=== PATIENT | male | born 1955 | race Caucasian/White ===

== ENCOUNTER 2020-11-24 08:53 | Inpatient (IN) | payer MEDICARE, OTHER, SELFPAY ==
[2020-11-24] VITALS (8 sets, daily range): BP systolic 119–154; BP diastolic 79–97; PULSE 96–118; RESP 18–20; TEMP 36.4–37.3; O2SAT 94–98; BMI 28.3
--- NOTE | ~2020-11-24 | XR_ITS ---
EXAMINATION: XR abdomen obstructive series DATE: 11/25/2020 08:15 INDICATION: Small bowel obstruction TECHNIQUE: Upright and supine views of the abdomen were obtained. COMPARISON: 11/24/2020 FINDINGS: There are multiple persistently dilated loops of small bowel in the left abdomen. No free i ntraperitoneal gas is identified. 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 The visualized lung bases are clear. IMPRESSION: 1. Small bowel obstruction. Reviewed, dictated and finalized at location A. RADIAL DRILL PRESS SET UP OPERATOR IMPRESSION: 1. Small bowel obstruction.
--- NOTE | ~2020-11-24 | XR_ITS ---
EXAMINATION: XR abdomen obstructive series EXAM DATE: 11/26/2020 08:15 INDICATION: Follow-up on small bowel obstruction. Symptoms improving. TECHNIQUE: Frontal upright projection of the upper abdomen, frontal projection of the lower abdomen f or interpretation. Comparison is made to prior examination from 11/25/2020. FINDINGS: There are multiple loops of moderately distended mid small bowel, with slight interval impr ovement compared to yesterday. There is expected amount of colonic stool and gas. Lung bases are serena r. No free intraperitoneal air suspected. IMPRESSION: Moderately dilated small bowel with slight improvement suspected. Small bowel obstructio n. Reviewed, dictated and finalized at location A. P MACHINE OPERATOR IMPRESSION: Moderately dilated small bowel with slight improvement suspected. Small bowel obstruction.
--- NOTE | ~2020-11-24 | XR_ITS ---
EXAMINATION: XR abdomen obstructive series EXAM DATE: 11/24/2020 15:42 INDICATION: F/U on small bowel obstruction (see CT of 11/24). TECHNIQUE: Frontal upright projection of the upper abdomen, frontal projection lower abdomen/pelvis f or interpretation. Correlation is made to CT abdomen pelvis earlier same date. FINDINGS: There are multiple loops of moderately distended air-filled jejunum in the mid abdomen, sma ll bowel obstruction. No free intraperitoneal air. There is no organomegaly. Lung bases are unremarka ble. There are mild bony degenerative changes. Contrast in the bladder from recent CT. IMPRESSION: Small bowel obstruction. Reviewed, dictated and finalized at location A. T ARMORED VEHICLE OFFICER IMPRESSION: Small bowel obstruction.
--- NOTE | ~2020-11-24 | CT_ITS ---
EXAMINATION: CT abdomen pelvis w con INDICATION: Left lower quadrant pain TECHNIQUE: Computed tomographic images of the abdomen and pelvis were obtained after the administrati on of 100 cc of Omnipaque 350 intravenous contrast. The dose-length product (DLP) was 579.38 mGy-cm. Automated exposure control and iterative reconstruction technique were employed. COMPARISON: None available FINDINGS: The lung bases are clear. The heart size is normal. The liver, spleen, pancreas, gallbladde r, and adrenal glands are normal. The kidneys are unremarkable. There is calcified atherosclerosis of the aorta and many of the other arteries. No pathologically enlarged abdominal or pelvic lymph nodes are identified. There are multiple dilated loops of small bowel with an abrupt transition point in t he left lower quadrant on axial image 92/164. The small bowel distal to this transition is decompress ed. No free intraperitoneal gas is identified. There is a fat-containing umbilical hernia. Colonic di verticulosis is present without evidence of diverticulitis. There are bilateral L5 pars defects with grade 1 anterolisthesis of L5 on S1. IMPRESSION: 1. Small bowel obstruction with transition point in the left lower quadrant. These findings were disc ussed with Dr. Mason Mcknight MD in the Emergency Department at 1012 hours on 11/24/2020. Reviewed, dictated and finalized at location A. PROCESSING SPECIALIST IMPRESSION: 1. Small bowel obstruction with transition point in the left lower quadrant. Th sergio findings were discussed with Dr. Mason Mcknight MD in the Emergency Depart ment at 1012 hours on 11/24/2020.
[2020-11-24 09:13] LABS: Basophils Percent Auto 0.2 % (0.2-1.2); Eosinophils Absolute Auto 0.1 K/mm3 (0-0.3); Eosinophils Percent Auto 0.5 % (0-4.4); Hematocrit 46.8 % (42.0-52.0); Hemoglobin 16.5 g/dL (14.0-18.0); Immature Granulocyte Absolute 0.03 K/mm3 (0.00-0.031); Immature Granulocyte Percent A 0.2 % (0-0.5); Lymphocytes Absolute Auto 1.74 K/mm3 (0.9-3.2); Lymphocytes Percent Auto 12.6 % (18.3-44.2); Mean Corpuscular HGB Conc 35.3 g/dl (32-36); Mean Corpuscular Hemoglobin 32.5 pg (26-34); Mean Corpuscular Volume 92.3 fl (80-100); Monocytes Absolute Auto 0.8 K/mm3 (0.1-0.6); Monocytes Percent Auto 5.9 % (2.6-8.5); Neutrophils Absolute Auto 11.1 K/mm3 (1.3-6.7); Neutrophils Percent Auto 80.6 % (45.5-73.1); Platelet Count Result 358 k/mm3 (150-375); Red Blood Count 5.07 M/mm3 (4.6-6.20); Red Cell Distribution Width 12.6 % (11.5-14.5); White Blood Count 13.8 K/mm3 (4.5-10.0)
[2020-11-24 09:20] LABS: Add Urine Microscopic? YES; Appearance Urine Clear (Clear); Bilirubin Urine Negative (Negative); Blood Urine Negative (Negative); Color Urine Yellow (Yellow); Glucose Urine UA Negative (Negative); Ketones Urine 1+ mg/dL (Negative); Leukocyte Esterase Ur Negative LEU/UL (Negative); Mucus Urine Rare /lpf; Nitrate Urine Negative (Negative); Protein Urine 1+ mg/dL (Negative); Specific Grav Ur 1.021 (1.001-1.035); Squamous Epithelial Cell Urine Rare /hpf (Few); Urobilinogen Urine Negative mg/dL (<2.0); WBC Urine 0-3 /hpf
[2020-11-24 09:26] LABS: Alanine Aminotransferase 31 U/L (4-50); Alkaline Phosphatase 81 U/L (38-126); Anion Gap 9 mmol/L (8-16); Aspartate Amino Transferase 34 U/L (17-59); Blood Urea Nitrogen 16 mg/dL (9-20); Calcium 10.2 mg/dL (8.4-10.2); Carbon Dioxide 29 mmol/L (22-30); Chloride 98 mmol/L (98-107); Estimated CRCL calculation 71 ml/min; Estimated Glomerular Filt Rate > 60; Glucose 112 mg/dL (75-110); Lipase 37 U/L (23-300); Potassium 4.3 mmol/L (3.4-5.0); Sodium 136 mmol/L (137-145)
[2020-11-24] MEDS: SODIUM CHLORIDE 0.9% IV 1,000 ML 150 ML IV CONT (09:29)
[2020-11-24] MEDS: MORPHINE SULFATE (*CRX) 4 MG/ML INJ IV PUSH ×2 (09:30→12:39)
[2020-11-24] MEDS: ONDANSETRON INJ 4 MG/2 ML VIAL IV PUSH ×4 (09:30→20:05)
--- NOTE | 2020-11-24 11:30 | ED.ABDPAIN ---
HPI - Abdominal Pain General Chief Complaint: Abdominal Pain Stated Complaint: ABD PAIN X2D Time Seen by Provider: 11/24/20 09:09 Source: patient Mode of arrival: ambulatory Limitations: no limitations History of Present Illness HPI narrative: 65-year-old with a history of hypertension, diabetes, diverticulosis s/p appendectomy remote history of bowel obstruction here with complaints of left lower abdominal pain since yesterday. Patient states that he is nauseated but have no significant vomiting. Had bowel movement 3 days ago. He denies any fever or chills. MD elicited complaint: abdominal pain Pertinent past history: diverticulitis Onset (ago): day(s) (1) Pain Consistency: constant Location: LLQ Severity: moderate Quality: aching Migration to: no migration Exacerbating factors: nothing Relieving factors: nothing Related Data Home Medications Medication Instructions Recorded Confirmed amlodipine-benazepril 1 cap PO DAILY 11/24/20 aspirin [Adult Low Dose Aspirin] 81 mg PO DAILY 11/24/20 atorvastatin 40 mg PO DAILY 11/24/20 dicyclomine 20 mg PO QID 11/24/20 levothyroxine 125 mcg PO DAILY 11/24/20 omeprazole magnesium [Prilosec OTC] 20 mg PO DAILY 11/24/20 Allergies Allergy/AdvReac Type Severity Reaction Status Date / Time grass pollen Allergy Unknown unknown Verified 12/18/16 13:51 poison karin extract Allergy Unknown unknown Verified 12/18/16 13:51 No Known Allergies Allergy Unverified 03/29/19 13:21 Review of Systems Review of Systems: All systems reviewed & are unremarkable except as noted in HPI and below Constitutional: Constitutional: Reports no additional constitutional complaints Eyes: Eyes: Reports no additional eye complaints ENT: Reports system reviewed and no additional complaints, except as documented Cardiovascular: Cardiovascular: Reports no additional cardiovascular complaints Respiratory: Respiratory: Reports no additional respiratory complaints Gastrointestinal: Gastrointestinal: Reports as per HPI Musculoskeletal: Musculoskeletal: Reports no additional musculoskeletal complaints Neurologic: Reports system reviewed and no additional complaints, except as documented Psychiatric: Psychiatric: Reports no additional psychiatric complaints Endocrine: Endocrine: Reports no additional endocrine complaints [facility] Family History Family History Father Hypertension Family history of heart disease in male family member before age 55 Mother Hypertension Family history of diabetes mellitus in first degree relative Family history of heart disease in male family member before age 55 Social History Social History Smoking status: Heavy tobacco smoker Alcohol intake: current Gender identity (if verbalized by the patient): Male Exam Narrative: Exam Narrative: GENERAL: Well-appearing, well-nourished, and in no acute distress. HEAD: Normocephalic, atraumatic. EYES: PERRLA and EOMI.. NECK: Supple. CHEST: Clear to auscultation. No respiratory distress. HEART: Regular rate and rhythm. No murmur heard. Normal peripheral pulses. ABDOMEN: Soft, tender in the LLQ EXTREMITIES: Normal range of motion. No edema. SKIN: Warm, dry, no rash. NEURO: No focal deficits. Alert and oriented x3. PSYCH: Normal mood and affect. Course Course Emergency Course: With a remote history of bowel obstruction will do CBC chemistry and a CT of the abdomen. Meanwhile we will give him Zofran for nausea and morphine for pain. Vital Signs Vital signs: Vital Signs Temperature 36.4 C L 11/24/20 08:55 Pulse Rate 118 H 11/24/20 08:55 Respiratory Rate 20 11/24/20 08:55 Blood Pressure 154/97 H 11/24/20 08:55 Pulse Oximetry 98 11/24/20 08:55 Temperature 36.4 C L 11/24/20 08:55 Pulse Rate 118 H 11/24/20 08:55 Respiratory Rate 20 11/24/20 08:55 Blood Pressure 154/97 H 11/24/20 08:55 Pulse Oximetry 98 11/24/20 08:55
--- NOTE | 2020-11-24 13:11 | PM.IMHP ---
H&P: HPI History of Present Illness Date/Time: 11/24/20 13:11 Chief Complaint: Abdominal pain Narrative: Chris Ramirez is a 65 year old male with a past medical history of hypertension, hypothyroid, diverticulitis, IBS, and GERD who presented emergency room for abdominal pain. Patient states this pain started yesterday morning and is a constant pain but he has intermittent severe pain associated with it. He feels more bloated and has had nausea but no vomiting. He has not had a bowel movement in 2-3 days and has not been passing gas. He said he took dicyclomine and norco (he had left over at home from previous sx) and these did not help the pain. He denies CP, SOB, COVID contacts, fevers, chills, leg swelling or headache. He just got his TSH drawn and it was normal and takes aspirin for prevention and has no heart disease or hx of stroke. He has never had a diagnosed bowel obstruction but has had this pain 2-3 times in the past that he just waited it out and it got better on its own. His only abdominal sx hx is an apendectomy back in the 80s. His last colonoscopy was 5-7 years ago[address] He sees Dr. Wick as his PCP. He is a current everyday smoker and denies need for a nicotine patch. Review of Systems Review of Systems: All systems reviewed & are unremarkable except as noted in HPI and below PMFSH Past Medical History Medical History (Updated 11/24/20 @ 14:09 by Ratna Alcantara PA-C) Diverticulitis GERD (gastroesophageal reflux disease) HLD (hyperlipidemia) HTN (hypertension), benign Hypothyroidism IBS (irritable bowel syndrome) Surgical History Surgical History (Updated 11/24/20 @ 14:09 by Ratna Alcantara PA-C) History of appendectomy Family History Family History Father Hypertension Family history of heart disease in male family member before age 55 Mother Hypertension Family history of diabetes mellitus in first degree relative Family history of heart disease in male family member before age 55 Social History Social History (Updated 11/24/20 @ 14:10 by Ratna Alcantara PA-C) Social History: Patient smokes 1.5 packs of cigarettes a day and drinks about 3-4 alcoholic drinks a week. He occasionally smokes marijuana but not very often. He does no drugs. 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 If he cannot make decisions for himself he would like both of his daughters, Cassidy and Tiff, to make decisions for him. Smoking status: Heavy tobacco smoker Alcohol intake: current Gender identity (if verbalized by the patient): Male Meds Home Medications and Allergies Home Medications Medication Instructions Recorded Confirmed Type amlodipine-benazepril 1 cap PO DAILY 11/24/20 History aspirin [Adult Low Dose Aspirin] 81 mg PO DAILY 11/24/20 History atorvastatin 40 mg PO DAILY 11/24/20 History dicyclomine 20 mg PO QID 11/24/20 History levothyroxine 125 mcg PO DAILY 11/24/20 History omeprazole magnesium [Prilosec OTC] 20 mg PO DAILY 11/24/20 History Allergies Allergy/AdvReac Type Severity Reaction Status Date / Time No Known Allergies Allergy Unverified 11/24/20 12:53 Vital Signs Vital Signs - 24 hr 11/24/20 08:55 11/24/20 12:47 Temperature 97.5 F L 98.6 F Pulse Rate 118 H 104 H Respiratory Rate 20 20 Blood Pressure 154/97 H 140/88 Pulse Oximetry 98 97 Exam Narrative: Exam Narrative: General:Well developed well nourished patient HEENT: Normocephalic, atraumatic, PERRL, Sclerae anicteric, oral mucosa moist. Neck: Supple Resp: CTA Heart: RRR with no murmurs Abd: Soft, slightly distended. Slight discomfort to palpation but no significant pain. Hyperactive bowel sounds Skin: Warm and dry Extremities: No swelling, erythema or pain to palpation Neuro: Alert and Oriented x4 . CN 2-12 intact. No focal neurological deficits. H&P: Results Labs Labs: Short CBC 11/24/20 Range/Units 09:05
[2020-11-24] MEDS: SODIUM CHLORIDE 0.9% IV 1,000 ML 75 ML IV CONT (13:21)
--- NOTE | 2020-11-24 14:40 | PM.CNGS ---
Assessment and Plan Assessment and plan (1) SBO (small bowel obstruction): Onset Date: ~11/24/20 Code(s): K56.609 - Unspecified intestinal obstruction, unspecified as to partial versus complete obstruction Status: Acute Assessment and Plan: There are no other specific abnormalities within the abdomen by CT. There is no sign of omental or mesenteric twisting. Will check a lactic acid if it has not been checked and then repeat abdominal films tomorrow morning to follow the patient. He has not vomited at this time so will try to leave him without NG, but will keep him NPO with IV fluids. Discussed his case with hospitalist Ratna Muñoz NP. (2) Leukocytosis: Onset Date: Unknown Code(s): D72.829 - Elevated white blood cell count, unspecified Status: Acute Assessment and Plan: Most likely secondary to his a bowel obstruction (3) HLD (hyperlipidemia): Onset Date: Unknown Code(s): E78.5 - Hyperlipidemia, unspecified Status: Acute Assessment and Plan: We will hold current medications for this and resume them upon resolution of the small-bowel obstruction or after surgery. (4) GERD (gastroesophageal reflux disease): Onset Date: Unknown Code(s): K21.9 - Gastro-esophageal reflux disease without esophagitis Status: Acute Assessment and Plan: Switched to IV PPIs while patient is NPO. (5) Hypothyroidism: Onset Date: Unknown Code(s): E03.9 - Hypothyroidism, unspecified Status: Acute Assessment and Plan: Management as per the medical service. (6) HTN (hypertension), benign: Onset Date: Unknown Code(s): I10 - Essential (primary) hypertension Status: Acute Assessment and Plan: Medicine will use hydralazine to control any systolic hypertension while NPO. Plan to resume his usual home meds once he is able to. History of Present Illness Consult details Consult date: 11/24/20 Reason for consult: abdominal pain Narrative: This has been on off for 2 days but especially worsened this morning. He he had some leftover hydrocodone from a previous wrist operation at home and tried that. When that did not work well he came to the emergency room for evaluation. He is a 65-year-old White male with a history of hypertension, diabetes, diverticulosis, and IBS,and a Hx. of s/p appendectomy remotely (open appe in 1983) Now here with complaints of left lower abdominal pain since yesterday. Patient states that he is nauseated but not having any significant vomiting. Had bowel movement 3 days ago. He denies any fever or chills. He also denies any previous episodes of bowel obstruction although he has had about 4 separate episodes of bloating and abdominal pain the last 5-10 years that did not require hospitalization. He remembers is last colonoscopy was done here at [place]. It may have been Dr. gonzalez who did it. He states that his colon was clear at that time and he supposed have another 10 years after that one. Workup in the emergency room by Dr. Lund reveals the patient has abdominal pain with bloating. CT scan of the abdomen and pelvis revealed a small bowel obstruction with a transition zone in the left mid abdomen about the level the umbilicus. I have reviewed his CT scan with our radiologist and he agrees with this reading. There are no other specific abnormalities within the abdomen. There is no signs of omental or mesenteric twisting. Will check a lactated acid if it has not been checked and then repeat abdominal films tomorrow morning to follow the patient. He has not vomited this time so will try to leave him without NG but will keep him NPO with IV fluids. Discussed his case with hospitalist Ratna Muñoz NP. Review of Systems Constitutional: Constitutional: Reports as per HPI, Denies chills, Denies daytime sleepiness, Denies headache(s), Denies increased appetite and Denies weig
[2020-11-24 15:28] LABS: Anion Gap 4 mmol/L (8-16); Blood Urea Nitrogen 14 mg/dL (9-20); Carbon Dioxide 27 mmol/L (22-30); Chloride 102 mmol/L (98-107); Estimated CRCL calculation 71 ml/min; Estimated Glomerular Filt Rate > 60; Glucose 105 mg/dL (75-110); Lactic Acid Reflex 0.8 mmol/L (0.7-2.1); Potassium 4.3 mmol/L (3.4-5.0); Sodium 133 mmol/L (137-145)
--- NOTE | 2020-11-24 15:28 | ADMGEN ---
This patient, Chris Ramirez, was admitted to 2 Medical Room 250-01. Patient/family oriented to hospital policies and general routines including ID bracelet, bed and alarms, visiting hours, pain management, procedures, bathroom and other care routines, personal items, smoking policy, room service/diet, and visiting hours. Information on how to activate the Rapid Response Team has been discussed. Patient/Family are encouraged to report perceived risks to care and to ask questions if they do not understand what they are told or what they should do.
[2020-11-24] MEDS: MORPHINE SULFATE (*CRX) 4 MG/ML INJ 2 MG IV PUSH ×4 (15:31→22:31)
[2020-11-25] VITALS: BP 119/63; PULSE 111; RESP 20; TEMP 37.2; O2SAT 94
[2020-11-25] MEDS: SODIUM CHLORIDE 0.9% IV 1,000 ML 75 ML IV CONT ×2 (02:30→17:20)
[2020-11-25 04:00] VITALS: BP 121/77; PULSE 104; RESP 20; TEMP 37.3; O2SAT 96
[2020-11-25 06:04] LABS: Lactic Acid Reflex 0.7 mmol/L (0.7-2.1)
[2020-11-25 06:06] LABS: Basophils Percent Auto 0.2 % (0.2-1.2); Eosinophils Absolute Auto 0.1 K/mm3 (0-0.3); Eosinophils Percent Auto 0.8 % (0-4.4); Hematocrit 40.5 % (42.0-52.0); Hemoglobin 14.1 g/dL (14.0-18.0); Immature Granulocyte Absolute 0.03 K/mm3 (0.00-0.031); Immature Granulocyte Percent A 0.3 % (0-0.5); Lymphocytes Absolute Auto 1.57 K/mm3 (0.9-3.2); Lymphocytes Percent Auto 15.2 % (18.3-44.2); Mean Corpuscular HGB Conc 34.8 g/dl (32-36); Mean Corpuscular Hemoglobin 32.3 pg (26-34); Mean Corpuscular Volume 92.7 fl (80-100); Mean Platelet Volume 8.3 fl (7.4-10.4); Monocytes Percent Auto 9.7 % (2.6-8.5); Neutrophils Absolute Auto 7.7 K/mm3 (1.3-6.7); Neutrophils Percent Auto 73.8 % (45.5-73.1); Platelet Count Result 330 k/mm3 (150-375); Red Blood Count 4.37 M/mm3 (4.6-6.20); Red Cell Distribution Width 12.5 % (11.5-14.5); White Blood Count 10.4 K/mm3 (4.5-10.0)
[2020-11-25 06:08] LABS: Anion Gap 4 mmol/L (8-16); Blood Urea Nitrogen 15 mg/dL (9-20); Calcium 8.6 mg/dL (8.4-10.2); Carbon Dioxide 28 mmol/L (22-30); Chloride 102 mmol/L (98-107); Estimated CRCL calculation 71 ml/min; Estimated Glomerular Filt Rate > 60; Glucose 92 mg/dL (75-110); Potassium 4.2 mmol/L (3.4-5.0); Sodium 134 mmol/L (137-145)
[2020-11-25] MEDS: LEVOTHYROXINE SODIUM INJ 100 MCG/5 ML VIAL 62.5 MCG IV PUSH (06:50)
--- NOTE | 2020-11-25 08:36 | PM.PNGS ---
Progress Note: A&P Assessment and Plan (1) SBO (small bowel obstruction): Onset Date: ~11/24/20 Code(s): K56.609 - Unspecified intestinal obstruction, unspecified as to partial versus complete obstruction Status: Acute Assessment and Plan: May be improving. Clinically okay. Awaiting results of today's x-ray. Discussed with patient that if things are still equivocal tomorrow may consider small-bowel follow-through to determine if this is partial or complete. lactic acid still normal today so doubt any ischemia of the bowel. (2) HLD (hyperlipidemia): Onset Date: Unknown Code(s): E78.5 - Hyperlipidemia, unspecified Status: Acute (3) GERD (gastroesophageal reflux disease): Onset Date: Unknown Code(s): K21.9 - Gastro-esophageal reflux disease without esophagitis Status: Acute Assessment and Plan: Will add Pepcid IV b.i.d. to help control any reflux (4) Hypothyroidism: Onset Date: Unknown Code(s): E03.9 - Hypothyroidism, unspecified Status: Acute (5) HTN (hypertension), benign: Onset Date: Unknown Code(s): I10 - Essential (primary) hypertension Status: Acute Additional Plan Will allow patient 1 cup of ice chips q.4 hours Will check with nurse later today if patient has a bowel movement will consider clear liquids. Subjective Subjective Date/Time Seen: 11/25/20 08:36 Patient lying in bed when I entered the room. Patient states he has passed a little bit of gas. He feels a little less bloated. No nausea vomiting overnight. X-ray just completed. Patient is able to walk in the hallways. Review of Systems Constitutional: Constitutional: Reports no additional constitutional complaints ENT: Reports other (Mucous Membranes moist.) Cardiovascular: Cardiovascular: Denies dyspnea Respiratory: Respiratory: Denies pain on inspiration and Denies dyspnea Gastrointestinal: Gastrointestinal: Reports no additional gastrointestinal complaints and Reports constipation Comments: Some improvement since yesterday. Little bit less abdominal pain. Patient states he is taking no morphine since midnight. Musculoskeletal: Musculoskeletal: Reports other (No calf swelling or edema) Integumentary/Breasts: Skin/Breast: Reports system reviewed and no additional complaints, except as docu Exam Const: General: cooperative, no acute distress, alert and awake Orientation/consciousness: patient oriented x3 HENMT: Mouth: Yes moist mucous membranes Neck: Neck: normal visual inspection Chest: Chest palpation & inspection: normal inspection of the chest Resp: Effort & Inspection: normal respiratory effort Auscultation: clear to auscultation bilaterally Cardio: Jugular venous distension: no JVD Rate: regular rate Rhythm: regular rhythm GI: Inspection: distended and scar ( Transverse right lower quadrant from previous appendectomy) GI Palp: Yes abdominal tenderness ( mild across the mid abdomen) and No Hernia present Auscultation: normal bowel sounds Rectal Exam: deferred Neuro: General: patient oriented x3 and moves all extremities Speech: normal speech Extrem: General: normal exam except as noted Psych: Mental Status: mental status grossly normal Speech and movement: Normal speech and movement present Affect: normal affect Thought content: Yes Normal thought content present Objective Data Vital Signs Vital Signs: Vital Signs - 24 hr 11/24/20 08:55 11/24/20 12:47 11/24/20 13:30 Temperature 36.4 C L 37.0 C 36.6 C Pulse Rate 118 H 104 H 96 Respiratory Rate 20 20 18 Blood Pressure 154/97 H 140/88 142/97 H Pulse Oximetry 98 97 96 11/24/20 14:31 11/24/20 15:42 11/24/20 18:11 Temperature 36.8 C 37.3 C Pulse Rate 99 107 H 112 H Respiratory Rate 18 18 Blood Pressure 135/88 119/79 149/90 H Pulse Oximetry 94 97 11/24/20 20:00 11/24/20 20:36 11/25/20 00:00 Temperature 36.8 C 37.2 C Pulse Rate 104 H 111 H
--- NOTE | 2020-11-25 09:03 | PM.IMPN ---
Progress Note: A&P Assessment and Plan (1) SBO (small bowel obstruction): Onset Date: ~11/24/20 Code(s): K56.609 - Unspecified intestinal obstruction, unspecified as to partial versus complete obstruction Status: Acute Assessment and Plan: Patient's symptoms and CT findings are consistent with small-bowel obstruction -patient has a history appendectomy in the past -He has never had a SBO diagnosed in the past but has had a hx of this pain 2-3 times before that got better on its own -will keep NPO -continue IV fluids and supportive care -surgery consulted -repeat xray from this morning still pending but does show a good amount of dilation on my review -No vomiting at this time. Hold off on the NG tube but if he starts vomiting this may be considered. -lactic acid normal (2) HTN (hypertension), benign: Onset Date: Unknown Code(s): I10 - Essential (primary) hypertension Status: Acute Assessment and Plan: Last blood pressure 121/77 -patient takes amlodipine and benazepril at home -will do hydralazine p.r.n. until he can take oral medications -monitor (3) Hypothyroidism: Onset Date: Unknown Code(s): E03.9 - Hypothyroidism, unspecified Status: Acute Assessment and Plan: continue levothyroxine IV -Pt last got his TSH checked last week and it was WNL according to him (4) GERD (gastroesophageal reflux disease): Onset Date: Unknown Code(s): K21.9 - Gastro-esophageal reflux disease without esophagitis Status: Acute Assessment and Plan: No acute symptoms -continue Pepcid IV (5) HLD (hyperlipidemia): Onset Date: Unknown Code(s): E78.5 - Hyperlipidemia, unspecified Status: Acute Assessment and Plan: Chronic, hold atorvastatin (6) Leukocytosis: Onset Date: Unknown Code(s): D72.829 - Elevated white blood cell count, unspecified Status: Acute Assessment and Plan: Likely due to acute illness -no infection suspected at this time -suspect it will resolve as the patient improves Time Spent With Patient Time with patient: 25 - 35 minutes Subjective Date/time seen: 11/25/20 09:03 Interval history: Pt is a 65-year-old male here for small bowel obstruction. Patient was seen today and states he is passing a little gas but has not had any bowel movements. He denies nausea, vomiting or abdominal pain at this time. He has no complaints today and specifically denies chest pain, shortness of breath, fevers, chills, headache or leg swelling. Review of Systems Review of Systems: All systems reviewed & are unremarkable except as noted in HPI and below Exam Narrative: Exam Narrative: General:Well developed well nourished patient HEENT: Normocephalic, atraumatic, PERRL, Sclerae anicteric, oral mucosa moist. Neck: Supple Resp: CTA Heart: RRR with no murmurs Abd: Soft, slightly distended. Slight discomfort to palpation but no significant pain. + bowel sounds Skin: Warm and dry Extremities: No swelling, erythema or pain to palpation Neuro: Alert and Oriented x4 . CN 2-12 intact. No focal neurological deficits. Objective Data Vital Signs Vital Signs: Vital Signs - 24 hr 11/24/20 12:47 11/24/20 13:30 11/24/20 14:31 Temperature 98.6 F 97.8 F 98.3 F Pulse Rate 104 H 96 99 Respiratory Rate 20 18 18 Blood Pressure 140/88 142/97 H 135/88 Pulse Oximetry 97 96 94 11/24/20 15:42 11/24/20 18:11 11/24/20 20:00 Temperature 99.2 F 98.2 F Pulse Rate 107 H 112 H 104 H Respiratory Rate 18 20 Blood Pressure 119/79 149/90 H 140/87 Pulse Oximetry 97 97 11/24/20 20:36 11/25/20 00:00 11/25/20 04:00 Temperature 98.9 F 99.1 F Pulse Rate 111 H 104 H Respiratory Rate 20 20 Blood Pressure 119/63 121/77 Pulse Oximetry 96 94 96 Intake/Output Intake/Output: Intake & Output 11/22/20 11/23/20 11/24/20 11/25/20 23:59 23:59 23:59 23:59 Intake [place]
[2020-11-25 10:25] VITALS: BP 120/80; PULSE 96; RESP 16; TEMP 37.4; O2SAT 94
[2020-11-25] MEDS: FAMOTIDINE 20 MG/2 ML VIAL IV PUSH ×2 (11:13→20:36)
[2020-11-25] MEDS: BISACODYL 10 MG SUPPOSITORY RECTAL (11:16)
[2020-11-25 15:17] VITALS: BP 122/83; PULSE 101; RESP 18; TEMP 37.1; O2SAT 96
[2020-11-25 18:00] VITALS: BP 128/86; PULSE 96; RESP 20; TEMP 36.8; O2SAT 94
[2020-11-25 21:25] VITALS: BP 117/73; PULSE 103; RESP 16; TEMP 37.2; O2SAT 94
[2020-11-26 05:30] LABS: Basophils Percent Auto 0.5 % (0.2-1.2); Eosinophils Absolute Auto 0.2 K/mm3 (0-0.3); Eosinophils Percent Auto 3.2 % (0-4.4); Hematocrit 37.6 % (42.0-52.0); Hemoglobin 13.1 g/dL (14.0-18.0); Immature Granulocyte Absolute 0.01 K/mm3 (0.00-0.031); Immature Granulocyte Percent A 0.2 % (0-0.5); Lymphocytes Absolute Auto 1.61 K/mm3 (0.9-3.2); Lymphocytes Percent Auto 24.4 % (18.3-44.2); Mean Corpuscular HGB Conc 34.8 g/dl (32-36); Mean Corpuscular Hemoglobin 32.2 pg (26-34); Mean Corpuscular Volume 92.4 fl (80-100); Mean Platelet Volume 8.2 fl (7.4-10.4); Monocytes Absolute Auto 0.7 K/mm3 (0.1-0.6); Monocytes Percent Auto 10.6 % (2.6-8.5); Neutrophils Percent Auto 61.1 % (45.5-73.1); Platelet Count Result 284 k/mm3 (150-375); Red Blood Count 4.07 M/mm3 (4.6-6.20); Red Cell Distribution Width 12.5 % (11.5-14.5); White Blood Count 6.6 K/mm3 (4.5-10.0)
[2020-11-26 05:46] LABS: Anion Gap 5 mmol/L (8-16); Blood Urea Nitrogen 13 mg/dL (9-20); Calcium 8.5 mg/dL (8.4-10.2); Carbon Dioxide 28 mmol/L (22-30); Chloride 102 mmol/L (98-107); Estimated CRCL calculation 64 ml/min; Estimated Glomerular Filt Rate > 60; Glucose 108 mg/dL (75-110); Potassium 3.9 mmol/L (3.4-5.0); Sodium 135 mmol/L (137-145)
[2020-11-26 05:59] VITALS: BP 109/72; PULSE 96; RESP 16; TEMP 36.8; O2SAT 96
[2020-11-26] MEDS: LEVOTHYROXINE SODIUM INJ 100 MCG/5 ML VIAL 62.5 MCG IV PUSH (06:27)
[2020-11-26] MEDS: FAMOTIDINE 20 MG/2 ML VIAL IV PUSH (08:34)
--- NOTE | 2020-11-26 10:14 | PM.DS ---
DS: Admitting Diagnosis Admitting Diagnosis Admitting Diagnosis: SBO DS: Discharge Diagnosis Discharge Diagnosis (1) SBO (small bowel obstruction): Onset Date: ~11/24/20 Code(s): K56.609 - Unspecified intestinal obstruction, unspecified as to partial versus complete obstruction Status: Acute Assessment and Plan: Patient's symptoms and CT findings are consistent with small-bowel obstruction -patient has a history appendectomy in the past -He has never had a SBO diagnosed in the past but has had a hx of this pain 2-3 times before that got better on its own -patient's symptoms have improved and he tolerated a regular diet and was able to discharge on a low-fiber diet. --surgery was consulted during the stay and agreed with treatment -x-ray still shows some dilation, patient educated come back if unable to tolerate an oral diet or if he starts to have abdominal pain. (2) HTN (hypertension), benign: Onset Date: Unknown Code(s): I10 - Essential (primary) hypertension Status: Acute Assessment and Plan: Last blood pressure 132/95 -continue home medications (3) Hypothyroidism: Onset Date: Unknown Code(s): E03.9 - Hypothyroidism, unspecified Status: Acute Assessment and Plan: continue levothyroxine -Pt last got his TSH checked last week and it was WNL according to him (4) GERD (gastroesophageal reflux disease): Onset Date: Unknown Code(s): K21.9 - Gastro-esophageal reflux disease without esophagitis Status: Acute Assessment and Plan: Continue home meds (5) HLD (hyperlipidemia): Onset Date: Unknown Code(s): E78.5 - Hyperlipidemia, unspecified Status: Acute Assessment and Plan: Chronic, hold atorvastatin (6) Leukocytosis: Onset Date: Unknown Code(s): D72.829 - Elevated white blood cell count, unspecified Status: Acute Assessment and Plan: Resolved, likely due to acute illness -no infection suspected DS: Summary Hospital Course Hospital Course: Patient is a 65-year-old male who presented emergency room for abdominal pain found to have a small-bowel obstruction. Patient's vitals were stable but did have a leukocytosis. Chest x-ray and UA were normal. No infection suspected. Patient remained afebrile. He was admitted to the hospitalist service and was observed. He never had any nausea or vomiting and never required an NG tube. Serial x-rays did show small-bowel obstruction but the last 1 showed slight improvement. Surgery was consulted and recommended advancing his diet the day of discharge. He did well with this and was taking a regular diet and tolerating it. He was eager for discharge and surgery okayed his discharge. The patient was educated about the worrisome signs and symptoms to come back to emergency room for was discharged in stable condition. Status at Discharge Functional status at discharge: independent ambulation Overall status at discharge: patient is back to baseline Time Spent with Patient Time attestation: Total time spent providing and/or coordinating discharge services:34 min Time spent: Greater than 30 minutes Exam Narrative: Exam Narrative: General:Well developed well nourished patient HEENT: Normocephalic, atraumatic, PERRL, Sclerae anicteric, oral mucosa moist. Neck: Supple Resp: CTA Heart: RRR with no murmurs Abd: Soft, slightly distended. Slight discomfort to palpation but no significant pain. + bowel sounds Skin: Warm and dry Extremities: No swelling, erythema or pain to palpation Neuro: Alert and Oriented x4 . CN 2-12 intact. No focal neurological deficits. DS: Data Data Completed and Pending Labs on day of discharge: Labs from last 24 hours 11/26/20 11/26/20 05:03 05:03 WBC 6.6 RBC 4.07 L Hgb 13.1 L Hct 37.6 L MCV 92.4 MCH 32.2 MCHC 34.8 RDW 12.5 Plt Count 284 MPV 8.2 Santa
--- NOTE | 2020-11-26 11:18 | PCDIET ---
physician consult for low fiber x 2 weeks then high fiber. See Nutritional Teaching Intervention. Thank you for the consult.
[2020-11-26 14:00] VITALS: BP 132/95; PULSE 103; RESP 18; TEMP 37; O2SAT 97
--- NOTE | 2020-11-26 16:00 | PM.PNGS ---
Progress Note: A&P Assessment and Plan (1) SBO (small bowel obstruction): Onset Date: ~11/24/20 Code(s): K56.609 - Unspecified intestinal obstruction, unspecified as to partial versus complete obstruction Status: Acute Assessment and Plan: Seems to be resolved. Clinically improving and his bowels are moving. Okay to advance diet to soft low fiber diet. Barrel Cleaner consulted for today to educate the patient on low fiber diet. We would recommend he follow this diet for about 2 weeks and then resume a regular diet. Okay from our standpoint that he is discharged today. I discussed all d/c instructions with the patient. Only follow-up PRN with our service. Additional Plan Discussed patient's case and plan with Dr. Root today. Subjective Subjective Date/Time Seen: 11/26/20 14:00 Patient reports: no new complaints, feels better, flatus and bowel movement Interval history: Patient reports tolerating full liquids for breakfast with no complaints. Denies abdominal pain, nausea, vomiting, or bloating. Has been passing flatus and had 2 BMs today. Review of Systems Review of Systems: All systems reviewed & are unremarkable except as noted in HPI and below Exam Const: General: no acute distress, alert and awake Orientation/consciousness: patient oriented x3 GI: Inspection: non-distended GI Palp: Yes Soft to palpation, No Tenderness to palpation present (GI) and No Guarding due to palpation present (GI) Auscultation: normal bowel sounds Neuro: General: moves all extremities and no focal motor deficits Extrem: General: no clubbing, cyanosis or edema and no calf tenderness Psych: Appearance: grossly normal Speech and movement: Normal speech and movement present Attitude: cooperative Insight: Good insight present (Psych) Objective Data Vital Signs Vital Signs: Vital Signs - 24 hr 11/25/20 18:00 11/25/20 21:25 11/26/20 05:59 Temperature 98.3 F 98.9 F 98.2 F Pulse Rate 96 103 H 96 Respiratory Rate 20 16 16 Blood Pressure 128/86 117/73 109/72 Pulse Oximetry 94 94 96 11/26/20 14:00 Temperature 98.6 F Pulse Rate 103 H Respiratory Rate 18 Blood Pressure 132/95 H Pulse Oximetry 97 Intake/Output Intake/Output: Intake & Output 11/23/20 11/24/20 11/25/2021 23:59 23:59 23:59 23:59 Intake Total 1000 1999 171 Balance 1000 1999 1714 Meds/Results Radiology Results: ITS Impressions Abdomen/Pelvis CT 11/24/20 10:01 IMPRESSION: 1. Small bowel obstruction with transition point in the left lower quadrant. These findings were discussed with Dr. Mason Mcknight MD in the Emergency Department at 1012 hours on 11/24/2020. Abdomen X-Ray 11/26/20 08:40 IMPRESSION: Moderately dilated small bowel with slight improvement suspected. Small bowel obstruction. Labs Labs: Laboratory Results - last 24 hr 11/26/20 11/26/20 05:03 05:03 WBC 6.6 RBC 4.07 L Hgb 13.1 L Hct 37.6 L MCV 92.4 MCH 32.2 MCHC 34.8 RDW 12.5 Plt Count 284 MPV 8.2 Immature Gran % (Auto) 0.2 Neut % (Auto) 61.1 Lymph % (Auto) 24.4 [place] % (Auto) 10.6 H Eos % (Auto) 3.2 Baso % (Auto) 0.5 Lymph # (Auto) 1.61 [place] # (Auto) 0.7 H Eos # (Auto) 0.2 Baso # (Auto) 0.0 Abs Immat Gran (auto) 0.01 Absolute Neuts (auto) 4.0 Absolute Nucleated RBC 0.0 Nucleated RBC % 0.0 Sodium 135 L Potassium 3.9 Chloride 102 Carbon Dioxide 28 Anion Gap 5 L BUN 13 Creatinine 0.90 Estim Creat Clear Calc 64 Estimated GFR > 60 Glucose 108 Calcium 8.5 Quality VTE Prophylaxis VTE prophylaxis: mechanical ordered
== END 2020-11-26 15:10 | disposition home or self-care (01) | DRG 390 ==
LOC: ANHED 11:34 → ANH2MED 14:17
PROVIDERS: Surgery; Admitting Provider Family Medicine; Emergency Provider Family Medicine; PCP Internal Medicine; Visit Provider Physician Assistant
DX: K56.609 Unspecified intestinal obstruction, unspecified as to partial versus complete obstruction (principal); I10 Essential (primary) hypertension; E03.9 Hypothyroidism, unspecified; K21.9 Gastro-esophageal reflux disease without esophagitis; E78.5 Hyperlipidemia, unspecified; D72.829 Elevated white blood cell count, unspecified; E11.9 Type 2 diabetes mellitus without complications; K58.9 Irritable bowel syndrome, unspecified; F17.210 Nicotine dependence, cigarettes, uncomplicated; Z28.21 Immunization not carried out because of patient refusal; Z79.82 Long term (current) use of aspirin; Z79.899 Other long term (current) drug therapy; Z90.49 Acquired absence of other specified parts of digestive tract
CPT/HCPCS: 36415; 74019; 74177; 80048; 80053; 81001; 83605; 83690; 85025; 96361; 96374; 96375; 99285; A9270; J2270; J2405; J7030; Q9967

== ENCOUNTER 2021-04-05 08:00 | Outpatient (RCR) | payer MEDICARE, OTHER, SELFPAY ==
--- NOTE | 2021-03-06 09:56 | PTOPEVAL ---
INITIAL PHYSICAL THERAPY EVALUATION and PLAN OF CARE Thank you for referring Chris Ramirez to [facility].? Chris is scheduled to be seen for physical therapy? 2x/week for 4 weeks. Please review, sign, date and return this plan of care CECILIA. I agree with and certify that the following plan of care is medically necessary. Referring Physician Date Admitting Provider: Attending Provider: Reggie Wick, Referring Provider: *PT Outpatient Evaluation Start: 03/06/21 08:27 Freq: Status: Active Protocol: Document 03/06/21 08:27 EDDIE (Rec: 03/06/21 09:56 EDDIE [id number]) Therapy Assessment Status Assessment Status Assessment Status Evaluation Outpatient Past Medical History Past Medical History Source of Past Medical History Recalled from Previous Visit, Confirmed with Patient/Family Neurological History Hx Neurological Disorders No Significant History Cardiovascular History Hx Hypercholesterolemia Yes Hx Hypertension Yes Respiratory History Hx Other Respiratory Disorders Yes: seasonal allergies Gastrointestinal History Hx Appendectomy Yes Hx Gastroesophageal Reflux Disease Yes Hx Irritable Bowel Yes Genitourinary History Hx Genitourinary Disorders No Significant History Musculoskeletal History Hx Fractures Yes: bilateral wrists Hematological History Hx Hematological Disorders No Significant History Endocrine History Hx Hypothyroidism Yes HEENT History Hx HEENT Disorders No Significant History Integumentary History Hx Skin Disorders No Significant History Reproductive History Hx Reproductive Disorders No Significant History Psychosocial History Hx Psychiatric Disorders No Significant History Pain History History of Any Previous or Ongoing No Significant History Instance of Pain Anesthesia History Hx Anesthesia Reactions No Significant History Evaluation Information Problem Diagnosis low back pain, R LE radiculopathy Onset ~ 1.5 yrs ago Cause lifting something - 1 time lift Subjective Information Chris reports that he was Query Text:As Reported By Patient/ lifting something 1.5 yr ago - Family felt pain in back. Pain came and went. 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 Had back pain that went down into R toe - back of leg, calf into toes . Sleep was disturbed -
--- NOTE | 2021-03-20 16:30 | PCPTNOTE ---
Patient called & cancelled scheduled appointment on March 22, 2021 to conflicting appointments.
--- NOTE | 2021-04-05 12:39 | PTOPEVAL ---
PHYSICAL THERAPY DISCHARGE SUMMARY Thank you for referring Chris Ramirez to [facility].? Rubén was seen for a total of 7 visits. He has made progress towards goals set. Rubén reports seldom having R LE radicular symptoms mainly just back discomfort, doing well in the mornings now, and pain sometimes returns with increased activity as the day goes on. His HEP was reviewed and updated today as well as body mechanics were reviewed with house rehabbing activities. He is ready for d/c from PT to HEP. I agree with Rubén's discharge from PT. Referring Physician Date Admitting Provider: Attending Provider: Reggie Wick, MD Referring Provider: Therapy Assessment Status Assessment Status Assessment Status Discharge Evaluation Information Problem Diagnosis low back pain, R LE radiculopathy Subjective Information Rubén reports that mornings are Query Text:As Reported By Patient/ good now. Not really having Family any R LE symptoms - mainly in lower back. Pain becomes more present once he starts doing things. Still busy working at daughter's house - for ~ another month. Pain Assessment Timing of Pain Assessment Timing of Pain Assessment Assessment Pain Scale Pain Scale Used Numeric (1 - 10) Self Report Pain Assessment Lower Back Reported Pain Level 1 Lowest Pain Intensity 0 Greatest Pain Intensity 6 Pain Score Pain Score 1: Self Report Interventions Used Interventions Used By Clinicians Exercise,Manual Therapy Techniques Cervical and Lumbar ROM Lumbar ROM Lumbar Flexion (0-90) 60 Query Text:Active in Degrees Lumbar Extension (0-40) 30 Query Text:Active in Degrees Lumbar Lateral Flexion Right (0-40) 25 Query Text:Active in Degrees Lumbar Lateral Flexion Left (0-40) 25 Query Text:Active in Degrees Lumbar Comments no pain with movement Palpation Assessment Palpation Palpation pelvis level in standing - symmetrical SIJ mobility present P-A mob to sacrum - non tender mild discomfort at L5, none at L4 lateral mobility - L5 /S1 - decreased L to R PT Clinical Summary Clinical Summary Protocol: PTEVCODE PT Clinical Summary Modified Oswestry LBP Questionnaire - 38% Rubén has progressed well in PT. His R LE radicular symptoms have been centralized, pain levels have de
== END 2021-04-16 10:26 | disposition home or self-care (01) ==
LOC: ANHHIPT 08:00
PROVIDERS: PCP Internal Medicine; Visit Provider Internal Medicine
DX: M54.5 Low back pain (principal)
CPT/HCPCS: 97110; 97140; 97161

== ENCOUNTER 2025-01-25 00:36 | Day surgery (SDC) | payer MEDICARE, SELFPAY ==
[2025-01-13 14:25] VITALS: BMI 24.3
--- OUTSIDE RECORDS SUMMARY | 2025-01-25 00:38 | XMS_ITS | Clinical Summary ---
Author Organization [facility] Address [address] [place] [id number] Care Team Providers Care Rolled Gold Plater Name Role Phone Unavailable Primary Care Provider Unavailabl e Social History Tobacco Use Types Packs/Day Years Used Date Smoking Tobacco: Never Assessed Sex and Gender Information Value Date Recorded Sex Assigned at Not on file Legal Sex Male 8:09 PM CDT Gender Identity Not on file Sexual Orientation Not on file Plan of Treatment Health Maintenance Due Date Last Done Comments Colorectal Cancer Screening Colonoscopy (10 Years) 1954 Hepatitis C 1972 DTaP, Tdap and Td Vaccines ( 1 - Tdap) 1973 Zoster Vaccines (1 of 2) 2004 Pneumococcal Vaccine: 65+ Ye ars (1 of 1 - PCV) 2019 COVID-19 Vaccine ( - 2023-2 5 season) 2024 Influenza Adult (#1) 2024 RSV Immunization or 60+ Years (1 - 1-dose 75+ series) 2029 Meningococcal B Vaccine Aged Out No l onger eligible based on patient's age to complete this topic Meningococcal Vaccine Aged Out No zoltan jorge eligible based on patient's age to complete this topic RSV Immunizations Under 20 Months Aged Out No longer eligible based on patient's age to complete this topic
[2025-01-25 08:15] VITALS: BP 107/90; PULSE 117; RESP 16; TEMP 35.9; O2SAT 97; BMI 25.0
[2025-01-25] MEDS: LACTATED RINGERS 1,000 ML 150 ML IV CONT ×2 (08:22→09:40)
--- NOTE | 2025-01-25 08:25 | P.PNAN_ITS ---
Anes - Initial Pre Proc Eval Procedure: Operation Date: 01/25/25 09:30 Proposed Procedures p Screening Colonoscopy - Hipolito Lai MD Date/Time: 01/25/25 08:25 Surgeon: Hipolito Lai MD Pre Op Diagnosis: Screening for malignant neoplasm of colon Patient Data Age: 69 Gender: M Height: 1.68 m Weight: 70.2 kg Last Vital Signs Temp 96.7 F L 01/25/25 08:15 Pulse 117 H 01/25/25 08:15 Resp 16 01/25/25 08:15 BP 107/90 01/25/25 08:15 Pulse Ox 97 01/25/25 08:15 O2 Del Method Room Air 01/25/25 08:15 Allergies Allergy/AdvReac Type Severity Reaction Status Date / Time No Known Allergies Allergy Verified 01/25/25 08:12 Home Medications ?Medication ?Instructions ?Recorded ?Confirmed ?Type Adult One Daily Multivitamin 1 tab-cap PO DAILY 11/24/20 01/25/25 History Allergy (diphenhydramine) 25 mg PO Q4-5H PRN Diarrhea 11/24/20 01/13/25 History Delsym 12 hour 1 cap BYMOUTH Q6-8H PRN Cough 11/24/20 01/13/25 History Zyrtec-D 1 cap BYMOUTH Q12-24H PRN allergies 11/24/20 01/25/25 History ascorbic acid (vitamin C) 500 mg 500 mg PO DAILY 11/24/20 01/25/25 History chewable tablet aspirin 81 mg tablet 81 mg PO DAILY 11/24/20 01/25/25 History omeprazole magnesium 20 mg 20 mg PO DAILY 11/24/20 01/25/25 History tablet,delayed release (Prilosec OTC) zinc sulfate 220 mg PO DAILY 11/24/20 01/25/25 History tramadol 50 mg tablet 100 mg (2 x 50 mg) PO Q6H PRN pain 08/19/24 01/13/25 Rx #40 tabs meloxicam 15 mg tablet See Rx Instructions .Route 09/28/24 01/25/25 Rx .COMPLEX #90 tabs dicyclomine 20 mg tablet See Rx Instructions .Route 10/24/24 01/13/25 Rx .COMPLEX #90 tabs amlodipine 5 mg-benazepril 10 mg See Rx Instructions .Route 11/07/24 01/25/25 Rx capsule .COMPLEX #90 caps atorvastatin 40 mg tablet See Rx Instructions .Route 11/07/24 01/25/25 Rx .COMPLEX #90 tabs levothyroxine 100 mcg tablet See Rx Instructions .Route 11/28/24 01/25/25 Rx .COMPLEX #90 tabs loperamide 2 mg capsule 2 mg PO Q6H PRN loose stool 01/13/25 01/13/25 History (Anti-Diarrheal (loperamide)) Patient hx anesthesia problems: none Family hx anesthesia problems: none Results Review: All pre-operative results and documents have been reviewed as part of the pre- operative evaluation. [facility] Past Medical History Medical History Osteoarthritis Left shoulder pain Right shoulder pain Right shoulder injury IBS (irritable bowel syndrome) Diverticulitis HLD (hyperlipidemia) (Unknown) GERD (gastroesophageal reflux disease) (Unknown) HTN (hypertension), benign (Unknown) Surgical History Surgical History History of appendectomy Family History Family History Father Hypertension Family history of heart disease in male family member before age 55 Mother Hypertension Family history of diabetes mellitus in first degree relative Family history of heart disease in male family member before age 55 Social History Social History Social History: Patient smokes 1.5 packs of cigarettes a day and drinks about 3-4 alcoholic drinks a week. He occasionally smokes marijuana but not very often. He does no drugs. 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 If he cannot make decisions for himself he would like both of his daughters, Cassidy and Tiff, to make decisions for him. Smoking packs per day: 1.5 Smoking cigarettes per day: 30.0 Smoking status: Current every day smoker Tobacco type: e-cigarettes/vaping Alcohol intake: current Drinks per week: 3 Substance use: never Substance use type: marijuana Other substance usage details: gummies Do You Feel Safe in your Home?: Yes Lack of Transportation: No Lack of Food: Never True Current Housing: I Have Housing Concerned About Future Housing: No Difficulty Paying Gas/Electric Bills: No Difficulty Paying for Meds: No Currently Unemployed: No Difficulty w/ Childcare or Family Care: No Living arrangements: with family Additional living arrangements comments: with fiance Occupation/Education: retired Gender identity (if verbalized by the patient): Male Spiritual care concerns: No Anes - Eval Final PreProcedure Day of Procedure 01/25/25 08:25 Patient weight: normal Lungs: normal air movement Airway: Mallampati scale and special considerations (Missing several post aspect/lower. ) Neurological: alert and oriented Last oral intake: >/= 8 hours ASA classification: III Emergent: no Anesthetic plan: proceed Anesthesia type and monitoring: general GIVS and standard monitoring Results Review: All pre-operative results and documents have been reviewed as part of the pre- operative evaluation. HTN, hyperlipidemia, smoker 1 ppd but just quit 2024, vapes daily now. Informed Consent: The patient's anesthetic plan and its attendant risks and benefits were discussed with the patient/family/POA. Questions were solicited and answers provided to the satisfaction of the patient/family/POA.
--- NOTE | 2025-01-25 10:54 | PM.IMHP ---
H&P: HPI History of Present Illness Date/Time: 01/25/25 10:54 Chief Complaint: Screening colonoscopy Narrative: This is the patient's 2nd colonoscopy after 10 years.. There are no GI symptoms and there is no family history of colorectal cancer. Review of Systems Review of Systems: All systems reviewed & are unremarkable except as noted in HPI and below PMFSH Past Medical History Medical History Osteoarthritis Left shoulder pain Right shoulder pain Right shoulder injury IBS (irritable bowel syndrome) Diverticulitis HLD (hyperlipidemia) (Unknown) GERD (gastroesophageal reflux disease) (Unknown) HTN (hypertension), benign (Unknown) Surgical History Surgical History History of appendectomy Family History Family History Father Hypertension Family history of heart disease in male family member before age 55 Mother Hypertension Family history of diabetes mellitus in first degree relative Family history of heart disease in male family member before age 55 Social History Social History Social History: Patient smokes 1.5 packs of cigarettes a day and drinks about 3-4 alcoholic drinks a week. He occasionally smokes marijuana but not very often. He does no drugs. 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 If he cannot make decisions for himself he would like both of his daughters, Cassidy and Tiff, to make decisions for him. Smoking packs per day: 1.5 Smoking cigarettes per day: 30.0 Smoking status: Current every day smoker Tobacco type: e-cigarettes/vaping Alcohol intake: current Drinks per week: 3 Substance use: never Substance use type: marijuana Other substance usage details: gummies Do You Feel Safe in your Home?: Yes Lack of Transportation: No Lack of Food: Never True Current Housing: I Have Housing Concerned About Future Housing: No Difficulty Paying Gas/Electric Bills: No Difficulty Paying for Meds: No Currently Unemployed: No Difficulty w/ Childcare or Family Care: No Living arrangements: with family Additional living arrangements comments: with fiance Occupation/Education: retired Gender identity (if verbalized by the patient): Male Spiritual care concerns: No Meds Home Medications and Allergies Home Medications ?Medication ?Instructions ?Recorded ?Confirmed ?Type Adult One Daily Multivitamin 1 tab-cap PO DAILY 11/24/20 01/25/25 History Allergy (diphenhydramine) 25 mg PO Q4-5H PRN Diarrhea 11/24/20 01/13/25 History Delsym 12 hour 1 cap BYMOUTH Q6-8H PRN Cough 11/24/20 01/13/25 History Zyrtec-D 1 cap BYMOUTH Q12-24H PRN allergies 11/24/20 01/25/25 History ascorbic acid (vitamin C) 500 mg 500 mg PO DAILY 11/24/20 01/25/25 History chewable tablet aspirin 81 mg tablet 81 mg PO DAILY 11/24/20 01/25/25 History omeprazole magnesium 20 mg 20 mg PO DAILY 11/24/20 01/25/25 History tablet,delayed release (Prilosec OTC) zinc sulfate 220 mg PO DAILY 11/24/20 01/25/25 History tramadol 50 mg tablet 100 mg (2 x 50 mg) PO Q6H PRN pain 08/19/24 01/13/25 Rx #40 tabs meloxicam 15 mg tablet See Rx Instructions .Route 09/28/24 01/25/25 Rx .COMPLEX #90 tabs dicyclomine 20 mg tablet See Rx Instructions .Route 10/24/24 01/13/25 Rx .COMPLEX #90 tabs amlodipine 5 mg-benazepril 10 mg See Rx Instructions .Route 11/07/24 01/25/25 Rx capsule .COMPLEX #90 caps atorvastatin 40 mg tablet See Rx Instructions .Route 11/07/24 01/25/25 Rx .COMPLEX #90 tabs levothyroxine 100 mcg tablet See Rx Instructions .Route 11/28/24 01/25/25 Rx .COMPLEX #90 tabs loperamide 2 mg capsule 2 mg PO Q6H PRN loose stool 01/13/25 01/13/25 History (Anti-Diarrheal (loperamide)) Allergies Allergy/AdvReac Type Severity Reaction Status Date / Time No Known Allergies Allergy Verified 01/25/25 08:12 Vital Signs Vital Signs - 24 hr 01/25/25 08:15 Temperature 96.7 F L Pulse Rate 117 H Respiratory Rate 16 Blood Pressure 107/90 Pulse Oximetry 97 Oxygen Delivery Room Air Exam Const: General: cooperative and healthy appearing Resp: Effort & Inspection: normal respiratory effort and able to speak in complete sentences Auscultation: clear to auscultation bilaterally Cardio: Rate: regular rate Rhythm: regular rhythm GI: Inspection: normal to inspection GI Palp: No No hepatosplenomegaly present Auscultation: normal bowel sounds Rectal Exam: deferred Skin: General skin exam: normal color Psych: Appearance: grossly normal Mental Status: mental status grossly normal Assessment and Plan Assessment and plan (1) Encounter for screening colonoscopy: Code(s): Z12.11 - Encounter for screening for malignant neoplasm of colon Status: Acute Assessment and Plan: The patient is deemed a good candidate for the procedure. Consent signed. Will proceed.
[2025-01-25 11:19] VITALS: BP 113/77; PULSE 100; RESP 20; O2SAT 97
[2025-01-25 11:29] VITALS: BP 123/92; PULSE 98; RESP 16; O2SAT 98
[2025-01-25 11:39] VITALS: BP 125/93; PULSE 88; RESP 20; O2SAT 87
== END 2025-01-25 11:56 | disposition home or self-care (01) ==
PROVIDERS: PCP Nurse Practitioner Family; Referring Provider Nurse Practitioner Family; Visit Provider Internal Medicine Gastroenterology
PROC: 0DJD8ZZ Inspection of Lower Intestinal Tract, Via Natural or Artificial Opening Endoscopic (ICD-10-PCS; CPT 45378; principal; 2025-01-25 09:30)
DX: Z12.11 Encounter for screening for malignant neoplasm of colon (principal); K57.30 Diverticulosis of large intestine without perforation or abscess without bleeding; F17.290 Nicotine dependence, other tobacco product, uncomplicated; F12.90 Cannabis use, unspecified, uncomplicated
CPT/HCPCS: G0121; J2003; J2704; J7120

== ENCOUNTER 2025-02-04 09:16 | Emergency (ER) | payer MEDICARE, SELFPAY ==
--- OUTSIDE RECORDS SUMMARY | 2025-02-04 09:18 | XMS_ITS | Clinical Summary ---
Author Organization [facility] Address [address] [place] [id number] Care Team Providers Care Senior Php Web Developer Name Role Phone Unavailable Primary Care Provider [...]
--- NOTE | 2025-02-04 09:19 | ED.GENADULT ---
HPI - General Adult General Chief complaint: Eye Problems Stated complaint: watery/itching eyes Time Seen by Provider: 02/04/25 09:19 Source: patient Mode of arrival: ambulatory Limitations: no limitations History of Present Illness HPI narrative: 69-year-old male patient presents to the [facility] with complaints of a bilateral redness to the eyes, watery eyes, itchiness and some discharge upon waking this morning. Denies fevers, body aches or chills. Patient states last week he did have a cough and does have history of seasonal allergies which he has been taking Zyrtec D 4. Denies fevers, body aches or chills. Related Data Home Medications ?Medication ?Instructions ?Recorded ?Confirmed ?Last Taken ?Type Adult One Daily Multivitamin 1 tab-cap PO DAILY 11/24/20 01/25/25 01/24/25 History Allergy (diphenhydramine) 25 mg PO Q4-5H PRN Diarrhea 11/24/20 01/13/25 Unknown History Delsym 12 hour 1 cap BYMOUTH Q6-8H PRN Cough 11/24/20 01/13/25 Unknown History Zyrtec-D 1 cap BYMOUTH Q12-24H PRN allergies 11/24/20 01/25/25 01/25/25 History ascorbic acid (vitamin C) 500 mg 500 mg PO DAILY 11/24/20 01/25/25 01/24/25 History chewable tablet aspirin 81 mg tablet 81 mg PO DAILY 11/24/20 01/25/25 01/24/25 History omeprazole magnesium 20 mg 20 mg PO DAILY 11/24/20 01/25/25 01/24/25 History tablet,delayed release (Prilosec OTC) zinc sulfate 220 mg PO DAILY 11/24/20 01/25/25 01/24/25 History loperamide 2 mg capsule 2 mg PO Q6H PRN loose stool 01/13/25 01/13/25 Unknown History (Anti-Diarrheal (loperamide)) Allergies Allergy/AdvReac Type Severity Reaction Status Date / Time No Known Allergies Allergy Verified 02/04/25 09:18 Review of Systems Review of Systems: CONSTITUTIONAL: Denies fever, chills, or sweats. EYES: Denies visual changes, Positive bilateral redness, itchiness and bilateral discharge. ENT: Denies rhinorrhea, congestion, sore throat, or otalgia. CARDIOVASCULAR: Denies chest pain, palpitations, or edema. RESPIRATORY: Denies cough or dyspnea. GASTROINTESTINAL: Denies abdominal pain, nausea, vomiting, or diarrhea. GENITOURINARY: Denies dysuria or hematuria. SKIN: Denies rash or itching. MUSCULOSKELETAL: Denies back pain, joint pain, or myalgia. NEUROLOGIC: Denies headache, numbness, or weakness. PSYCHIATRIC: Denies anxiety or depression. [facility] Past Medical History Medical History Osteoarthritis Left shoulder pain Right shoulder pain Right shoulder injury IBS (irritable bowel syndrome) Diverticulitis HLD (hyperlipidemia) (Unknown) GERD (gastroesophageal reflux disease) (Unknown) HTN (hypertension), benign (Unknown) Surgical History Surgical History History of appendectomy Family History Family History Father Hypertension Family history of heart disease in male family member before age 55 Mother Hypertension Family history of diabetes mellitus in first degree relative Family history of heart disease in male family member before age 55 Social History Social History Social History: Patient smokes 1.5 packs of cigarettes a day and drinks about 3-4 alcoholic drinks a week. He occasionally smokes marijuana but not very often. He does no drugs. 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 If he cannot make decisions for himself he would like both of his daughters, Cassidy and Tiff, to make decisions for him. Smoking packs per day: 1.5 Smoking cigarettes per day: 30.0 Smoking status: Current every day smoker Tobacco type: e-cigarettes/vaping Alcohol intake: current Drinks per week: 3 Substance use: never Substance use type: marijuana Other substance usage details: gummies Do You Feel Safe in your Home?: Yes Lack of Transportation: No Lack of Food: Never True Current Housing: I Have Housing Concerned About Future Housing: No Difficulty Paying Gas/Electric Bills: No Difficulty Paying for Meds: No Currently Unemployed: No Difficulty w/ Childcare or Family Care: No Living arrangements: with family Additional living arrangements comments: with fiance Occupation/Education: retired Gender identity (if verbalized by the patient): Male Spiritual care concerns: No Comments At the time of my signature I agree with nursing past medical history, surgical, social, and family history. There is no relevant family history pertinent to the presenting complaint. Exam Narrative: GENERAL: Well-appearing, well-nourished, and in no acute distress. HEAD: Normocephalic, atraumatic. EYES: PERRLA and EOM intact without limitation or complaint of pain, no periorbital soft tissue swelling ,no erythema, warmth or tenderness noted, no obvious deformity. No crusting or swelling.no tearing or draining.No photophobia. No nystagmus No FB or lesion on lid eversion. Corneas grossly clear, no obvious FB or hyphens/hypopyon. Erythemic injection to sclera. Lids and lashes with some dried drainage.. ENT: Nares clear, no rhinorrhea or epistaxis. Mucous membranes moist. posterior pharynx with no erythema, tonsillar enlargement, exudates or lesions present. Bilateral TMs does appear to have some fluid behind them. NECK: Supple. No lymphadenopathy CHEST: Clear to auscultation. No respiratory distress. HEART: Regular rate and rhythm. No murmur heard. Normal peripheral pulses. ABDOMEN: Soft, nontender, nondistended, normal active bowel sounds. EXTREMITIES: Normal range of motion. No edema. SKIN: Warm, dry, no rash. NEURO: No focal deficits. Alert and oriented x3. Course Course Level of Care: Express Care Visit Vital Signs Vital signs: Vital Signs Temperature 36.6 C 02/04/25 09:25 Pulse Rate 108 H 02/04/25 09:25 Respiratory Rate 17 02/04/25 09:25 Blood Pressure 124/78 02/04/25 09:25 Pulse Oximetry 96 02/04/25 09:25 Oxygen Delivery Room Air 02/04/25 09:25 Temperature 36.6 C 02/04/25 09:25 Pulse Rate 108 H 02/04/25 09:25 Respiratory Rate 17 02/04/25 09:25 Blood Pressure 124/78 02/04/25 09:25 Pulse Oximetry 96 02/04/25 09:25 Oxygen Delivery Room Air 02/04/25 09:25 Vital signs reviewed. Medical Decision Making MDM Narrative Medical decision making narrative: Discussed with patient that this does appear to be most likely either allergic or viral conjunctivitis. I will discharge him home with an eyedrop to help with the redness and itchiness and I would encourage him to continue taking his [id number] Zyrtec D would also recommend some Flonase to help with the fluid behind the ears. Patient verbalized understanding denies any other questions or concerns at this time. Differential Diagnosis Differential Diagnosis: Differential diagnosis: Conjunctivitis, foreign body, corneal ulcer, Keratitis, dendritic lesions, corneal abrasion, very orbital infection, orbital cellulitis, orbital pain, acute narrow angle glaucoma, detached retina, central retinal artery occlusion, complete hyphema, vitreous hemorrhage, optic neuritis, globe disruption Vital Signs Vital Signs: Vital Signs Temperature 36.6 C 02/04/25 09:25 Pulse Rate 108 H 02/04/25 09:25 Respiratory Rate 17 02/04/25 09:25 Blood Pressure 124/78 02/04/25 09:25 Pulse Oximetry 96 02/04/25 09:25 Oxygen Delivery Room Air 02/04/25 09:25 Temperature 36.6 C 02/04/25 09:25 Pulse Rate 108 H 02/04/25 09:25 Respiratory Rate 17 02/04/25 09:25 Blood Pressure 124/78 02/04/25 09:25 Pulse Oximetry 96 02/04/25 09:25 Oxygen Delivery Room Air 02/04/25 09:25 Critical Care Time Critical Care Time Critical Care Time: No Discharge Plan Discharge Clinical Impression: Acute viral conjunctivitis Patient Disposition: Home, Self-Care Condition: Stable Instructions: Antibiotic Form, Conjunctivitis (ED) Additional Instructions: Conjunctivitis is inflammation or irritation to the eye conjunctiva. This causes the white part of the eye to appear red or pink, which is why they call it pink eye . It can be caused by viruses, bacteria, allergies, injuries, chemicals or other eye diseses. Most pink eye (viral and bacterial) is contagious. It might affect the otehr eye and spread to other people. Everyone in the household shoule wash their hands often and not touch their eyes. Don't share towels, clothes, sheets, or blankets. After touching a pink eye , always wash your hands. Don't go to school until the pink eye is back to normal. Home Care: Gently clean any mucus from the eye with a soft, wet cloth. Everyone in the house should frequently wash their hands often with soap and water or hand agency sales management assistant and avoid sharing towels. Do not use contact lenses unless the eye doctor has approved this. Call your doctor or go to the ER if your condition worsens or: Eye pain is not better or getting worse. Vision is blurry. Infection is not improved in 2 days. Eyelid or face becomes red or swollen. Fever occurs. Patient Language: [place] Prescriptions: New ketotifen fumarate [Zaditor] 0.025 % (0.035 %) drops 1 drop EACH EYE BID PRN (Reason: allergy symptoms) 5 Days Qty: 5 0RF Rx Instructions: administer at least 8 hours apart No Action aspirin 81 mg Tablet 81 mg PO DAILY omeprazole magnesium [Prilosec OTC] 20 mg Tablet,Delayed Release (Dr/Ec) 20 mg PO DAILY Adult One Daily Multivitamin 1 tab-cap PO DAILY Allergy (diphenhydramine) 25 mg PO Q4-5H PRN (Reason: Diarrhea) ascorbic acid (vitamin C) 500 mg Tablet,Chewable 500 mg PO DAILY Delsym 12 hour 1 cap BYMOUTH Q6-8H PRN (Reason: Cough) Zyrtec-D 1 cap BYMOUTH Q12-24H PRN (Reason: allergies) zinc sulfate 220 mg PO DAILY loperamide [Anti-Diarrheal (loperamide)] 2 mg capsule 2 mg PO Q6H PRN (Reason: loose stool) tramadol 50 mg tablet 100 mg PO Q6H PRN (Reason: pain) Qty: 40 0RF dicyclomine 20 mg tablet See Rx Instructions .ROUTE .COMPLEX Qty: 90 0RF Dose Instruction: TAKE 1 TABLET BY MOUTH 4 TIMES DAILY NEEDED FOR DIARRHEA Rx Instructions: TAKE 1 TABLET BY MOUTH 4 TIMES DAILY NEEDED FOR DIARRHEA atorvastatin 40 mg tablet See Rx Instructions .ROUTE .COMPLEX Qty: 90 1RF Dose Instruction: Take 1 tablet by mouth once daily Rx Instructions: Take 1 tablet by mouth once daily amlodipine-benazepril 5-10 mg capsule See Rx Instructions .ROUTE .COMPLEX Qty: 90 1RF Dose Instruction: Take 1 capsule by mouth once daily Rx Instructions: Take 1 capsule by mouth once daily levothyroxine 100 mcg tablet See Rx Instructions .ROUTE .COMPLEX Qty: 90 1RF Dose Instruction: Take 1 tablet by mouth once daily Rx Instructions: Take 1 tablet by mouth once daily meloxicam 15 mg tablet See Rx Instructions .ROUTE .COMPLEX Qty: 90 0RF Dose Instruction: Take 1 tablet by mouth once daily Rx Instructions: Take 1 tablet by mouth once daily Follow-up/Referrals: Loretta Funk APN-[facility] [Primary Care Provider] - Time of Disposition: 09:33
[2025-02-04 09:25] VITALS: BP 124/78; PULSE 108; RESP 17; TEMP 36.6; O2SAT 96
== END 2025-02-04 09:34 | disposition home or self-care (01) ==
PROVIDERS: Emergency Provider Nurse Practitioner Family; PCP Nurse Practitioner Family
DX: H10.33 Unspecified acute conjunctivitis, bilateral (principal); F17.290 Nicotine dependence, other tobacco product, uncomplicated; F12.90 Cannabis use, unspecified, uncomplicated; I10 Essential (primary) hypertension; E78.5 Hyperlipidemia, unspecified; K21.9 Gastro-esophageal reflux disease without esophagitis; M19.90 Unspecified osteoarthritis, unspecified site; K58.9 Irritable bowel syndrome, unspecified; Z79.82 Long term (current) use of aspirin
CPT/HCPCS: 99213; G0463